=== PATIENT | male | born 1975 | race Caucasian/White ===

== ENCOUNTER 2023-08-01 16:40 | Inpatient (IN) | payer OTHER ==
[2023-08-01 18:42] VITALS: BMI 27.3
[2023-08-01] MEDS ORDERED: IBUPROFEN 400 MG TABLET (FP) PO PRN (21:10)
[2023-08-01] MEDS ORDERED: P-EPHED 60MG/TRIPROLIDI 2.5MG TABLET PO PRN (21:10)
[2023-08-01] MEDS ORDERED: DICYCLOMINE HCL 10 MG CAPSULE PO PRN (21:10)
[2023-08-01] MEDS ORDERED: MAGNESIUM HYDROX 2400MG/30ML ORAL SUSPENSION 30 ML CUP PO PRN (21:10)
[2023-08-01] MEDS ORDERED: LOPERAMIDE HCL 2 MG CAPSULE PO PRN (21:10)
[2023-08-01] MEDS ORDERED: BISMUTH SUBSALICYLATE 524 MG/30 ML PO PRN (21:10)
[2023-08-01] MEDS ORDERED: MAG HYDROX/AL HYDROX/SIMETH 30 ML UNIT-DOSE CUP PO PRN (21:10)
[2023-08-01] MEDS ORDERED: guaiFENesin 600 MG TABLET.ER (FP) PO PRN (21:10)
[2023-08-01] MEDS ORDERED: NALOXONE HCL (KLOXXADO) 8 MG SPRAY NS PRN (21:10)
[2023-08-01] MEDS ORDERED: ONDANSETRON *ODT* 4 MG TABLET SL PRN (21:10)
[2023-08-01] MEDS ORDERED: BENZONATATE 200 MG CAPSULE PO PRN (21:10)
[2023-08-01] MEDS ORDERED: POLYETHYLENE GLYCOL (HEALTHYLAX) 3350 17 GM PACKET PO PRN (21:10)
[2023-08-01] MEDS ORDERED: NALOXONE HCL 0.4 MG/ML VIAL IM PRN (21:10)
[2023-08-01] MEDS ORDERED: NICOTINE POLACRILEX 2 MG GUM BUC PRN (21:10)
[2023-08-01] MEDS ORDERED: BENZOCAINE/MENTHOL (CHLORASEPTIC ) LOZENGE MM PRN (21:10)
[2023-08-01] MEDS ORDERED: methaDONE HCL 10 MG TABLET (FOR DETOX USE ONLY) ONE (22:25)
[2023-08-01] MEDS ORDERED: MELATONIN 5 MG TABLETS ONE (22:26)
[2023-08-01] MEDS: MELATONIN 5 MG TABLETS PO SCH (22:31)
[2023-08-01] MEDS: methaDONE HCL 10 MG TABLET (FOR DETOX USE ONLY) PO ONE (22:31)
[2023-08-01] MEDS: THIAMINE 100 MG TABLET PO SCH (22:58)
[2023-08-01] MEDS: cloNIDine HCL 0.1 MG TABLET PO PRN (23:00)
[2023-08-02] MEDS: BICTEGRAV/EMTRICIT/TENOFOV (BIKTARVY) 50-200-25 MG TABLET PO SCH (07:15)
[2023-08-02] MEDS: INSULIN ASPART SLIDING SCALE (NOVOLOG) 1 VIAL SQ SCH (07:16)
[2023-08-02] MEDS: METHOCARBAMOL 500 MG TABLET PO PRN (09:52)
[2023-08-02] MEDS: PRENATAL VITAMINS W/ FOLIC ACID TABLET (FP) PO SCH (09:52)
[2023-08-02 11:47] LABS: HEMATOCRIT 40.2 % (35.4-49); HEMOGLOBIN 12.9 GM/dL (11.7-16.9); MCH 27.1 pg (25.7-33.7); MEAN CELL VOLUME 84.8 fl (80-96); MEAN PLT VOLUME 9.6 fl (7.5-11.1); PLATELET COUNT 207 10^3/uL (134-434); RBC 4.75 M/mm3 (4.00-5.60); RDW 14.2 % (11.9-15.9); WHITE BLOOD COUNT 7.8 K/mm3 (4.0-10.0)
[2023-08-02 11:51] LABS: POTASSIUM 4.3 mmol/L (3.5-5.1)
[2023-08-02 12:02] LABS: ALBUMIN 2.8 g/dl (3.4-5.0)
[2023-08-02 12:03] LABS: BILIRUBIN,TOTAL 0.3 mg/dL (0.2-1); CALCIUM 9.3 mg/dL (8.5-10.1); TOT PROT 7.2 g/dl (6.4-8.2)
[2023-08-02 12:04] LABS: BLOOD UREA NITROGEN 9.2 mg/dL (7-18); CREATININE 0.9 mg/dL (0.55-1.3)
[2023-08-02] MEDS: risperiDONE 1 MG TABLET PO SCH (22:49)
[2023-08-03] MEDS: methaDONE HCL 10 MG TABLET (FOR DETOX USE ONLY) PO ONE (09:47)
[2023-08-03] MEDS: SERTRALINE HCL 50 MG TABLET (FP) PO SCH (09:47)
[2023-08-03] MEDS: hydrOXYzine PAMOATE 25 MG CAPSULE (FP) PO PRN (09:47)
[2023-08-04] MEDS: IBUPROFEN 600 MG TABLET (FP) PO PRN (19:06)
[2023-08-04] MEDS: cloNIDine HCL 0.1 MG TABLET PO PRN (22:42)
[2023-08-05] MEDS: methaDONE HCL 10 MG TABLET (FOR DETOX USE ONLY) PO ONE (09:47)
[2023-08-05] MEDS: ACETAMINOPHEN 325 MG TABLET (FP) PO PRN (22:19)
[2023-08-06 09:52] VITALS: BP 158/82; PULSE 73; RESP 17; TEMP 98.2
== END 2023-08-06 10:41 | disposition home or self-care (01) | DRG 773 ==
LOC: YASAS 16:40 → Y3N 22:20
PROVIDERS: ADMIT Allergy & Immunology; ATTEND Surgery
PROC: HZ2ZZZZ Detoxification Services for Substance Abuse Treatment (ICD-10-PCS; principal; 2023-08-01)
DX: F11.23 Opioid dependence with withdrawal (principal); F14.20 Cocaine dependence, uncomplicated; F17.210 Nicotine dependence, cigarettes, uncomplicated; F19.24 Other psychoactive substance dependence with psychoactive substance-induced mood disorder; Z21 Asymptomatic human immunodeficiency virus [HIV] infection status; I10 Essential (primary) hypertension; E11.9 Type 2 diabetes mellitus without complications; Z79.4 Long term (current) use of insulin; Z86.59 Personal history of other mental and behavioral disorders; Z87.828 Personal history of other (healed) physical injury and trauma; Z28.310 Unvaccinated for COVID-19; Z28.9 Immunization not carried out for unspecified reason
CPT/HCPCS: 36415; 80053; 82962; 85027; 86780

== ENCOUNTER 2023-12-11 09:52 | Inpatient (IN) | payer OTHER ==
[2023-12-11 10:35] VITALS: BMI 27.6
[2023-12-11] MEDS ORDERED: POLYETHYLENE GLYCOL (HEALTHYLAX) 3350 17 GM PACKET PO PRN (10:50)
[2023-12-11] MEDS ORDERED: IBUPROFEN 400 MG TABLET (FP) PO PRN (10:50)
[2023-12-11] MEDS ORDERED: NALOXONE (NARCAN) HCL 4 MG/0.1 ML SPRAY NS PRN (10:50)
[2023-12-11] MEDS ORDERED: NALOXONE HCL 0.4 MG/ML VIAL IM PRN (10:50)
[2023-12-11] MEDS ORDERED: P-EPHED 60MG/TRIPROLIDI 2.5MG TABLET PO PRN (10:50)
[2023-12-11] MEDS ORDERED: MAG HYDROX/AL HYDROX/SIMETH 30 ML UNIT-DOSE CUP PO PRN (10:50)
[2023-12-11] MEDS ORDERED: LOPERAMIDE HCL 2 MG CAPSULE PO PRN (10:50)
[2023-12-11] MEDS ORDERED: BENZONATATE 200 MG CAPSULE PO PRN (10:50)
[2023-12-11] MEDS ORDERED: ACETAMINOPHEN 325 MG TABLET (FP) PO PRN (10:50)
[2023-12-11] MEDS ORDERED: MAGNESIUM HYDROX 2400MG/30ML ORAL SUSPENSION 30 ML CUP PO PRN (10:50)
[2023-12-11] MEDS ORDERED: NICOTINE POLACRILEX 2 MG GUM BUC PRN (10:50)
[2023-12-11] MEDS ORDERED: guaiFENesin 600 MG TABLET.ER (FP) PO PRN (10:50)
[2023-12-11] MEDS ORDERED: BENZOCAINE/MENTHOL (CHLORASEPTIC ) LOZENGE MM PRN (10:50)
[2023-12-11] MEDS ORDERED: NICOTINE POLACRILEX 2 MG LOZENGE BC PRN (10:50)
[2023-12-11] MEDS: ATORVASTATIN CA 40 MG TABLET (FP) PO SCH (22:38)
[2023-12-11] MEDS: THIAMINE 100 MG TABLET PO SCH (22:38)
[2023-12-11] MEDS: MELATONIN 5 MG TABLETS PO SCH (22:38)
[2023-12-12] MEDS: PRENATAL VITAMINS W/ FOLIC ACID TABLET (FP) PO SCH (09:53)
[2023-12-12] MEDS: IBUPROFEN 600 MG TABLET (FP) PO PRN (09:53)
[2023-12-12] MEDS: cloNIDine HCL 0.1 MG TABLET PO SCH (09:53)
[2023-12-12] MEDS: methaDONE HCL 10 MG TABLET PO ONE (09:54)
[2023-12-12] MEDS ORDERED: methaDONE HCL 10 MG TABLET PO PRN (11:06)
[2023-12-12] MEDS: risperiDONE 1 MG TABLET PO SCH (22:39)
[2023-12-12] MEDS: METHOCARBAMOL 500 MG TABLET PO ONE (22:50)
[2023-12-13] MEDS: methaDONE 40 MG, methaDONE 10 MG PO ONE (09:40)
[2023-12-13] MEDS: SERTRALINE HCL 50 MG TABLET (FP) PO SCH (09:40)
[2023-12-14] MEDS ORDERED: cloNIDine HCL 0.1 MG TABLET PO PRN
[2023-12-14] MEDS: methaDONE 40 MG, methaDONE 20 MG PO ONE (10:15)
[2023-12-15] MEDS: methaDONE 40 MG, methaDONE 30 MG PO ONE (10:14)
[2023-12-16] MEDS: BICTEGRAV/EMTRICIT/TENOFOV (BIKTARVY) 50-200-25 MG TABLET PO SCH (10:18)
[2023-12-16] MEDS: methaDONE HCL 40 MG DISPERSABLE TABLET PO ONE (10:18)
[2023-12-16 12:31] LABS: BASO % 0.4 % (0-2.0); EOS % 1.6 % (0-4.5); HEMATOCRIT 40.8 % (35.4-49); HEMOGLOBIN 13.4 GM/dL (11.7-16.9); LYMPH % 26.1 % (8-40); MCH 27.1 pg (25.7-33.7); MCHC 32.9 g/dl (32.0-35.9); MEAN CELL VOLUME 82.3 fl (80-96); MEAN PLT VOLUME 9.4 fl (7.5-11.1); MONO % 7.5 % (3.8-10.2); NEUT % 64.4 % (42.8-82.8); PLATELET COUNT 192 10^3/uL (134-434); RBC 4.95 M/mm3 (4.00-5.60); RDW 13.7 % (11.9-15.9); WHITE BLOOD COUNT 7.2 K/mm3 (4.0-10.0)
[2023-12-16 12:39] LABS: POTASSIUM 4.5 mmol/L (3.5-5.1)
[2023-12-16 12:46] LABS: CALCIUM 9.4 mg/dL (8.5-10.1)
[2023-12-16 12:47] LABS: BLOOD UREA NITROGEN 12.2 mg/dL (7-18)
[2023-12-17] MEDS: methaDONE HCL 40 MG DISPERSABLE TABLET PO SCH (06:16)
[2023-12-17] MEDS ORDERED: methaDONE 80 MG, methaDONE 10 MG PO ONE (10:00)
[2023-12-17 14:42] LABS: PH,URINE 7.5 (5.0-8.0); URINE APPEARANCE CLEAR; URINE BILIRUBIN NEGATIVE (NEGATIVE); URINE COLOR YELLOW; URINE GLUCOSE (UA) NEGATIVE (NEGATIVE); URINE KETONE NEGATIVE (NEGATIVE); URINE LEUK ESTERASE NEGATIVE (NEGATIVE); URINE NITRITE NEGATIVE (NEGATIVE); URINE PROTEIN NEGATIVE (NEGATIVE); URINE UROBILINOGEN 0.2 mg/dL (0.2-1.0)
[2023-12-18 09:20] VITALS: TEMP 97.8
[2023-12-18 13:24] VITALS: BP 123/69; PULSE 67; RESP 16
== END 2023-12-18 13:53 | disposition other institution (70) | DRG 773 ==
LOC: YASAS 09:52 → Y3N 11:58
PROVIDERS: ADMIT Allergy & Immunology; ATTEND Surgery
PROC: HZ2ZZZZ Detoxification Services for Substance Abuse Treatment (ICD-10-PCS; principal; 2023-12-11)
DX: F11.23 Opioid dependence with withdrawal (principal); F14.20 Cocaine dependence, uncomplicated; F17.210 Nicotine dependence, cigarettes, uncomplicated; F19.24 Other psychoactive substance dependence with psychoactive substance-induced mood disorder; F25.9 Schizoaffective disorder, unspecified; Z21 Asymptomatic human immunodeficiency virus [HIV] infection status; I10 Essential (primary) hypertension; E78.5 Hyperlipidemia, unspecified; E11.9 Type 2 diabetes mellitus without complications; Z79.899 Other long term (current) drug therapy; Z87.828 Personal history of other (healed) physical injury and trauma
CPT/HCPCS: 36415; 80048; 80305; 81003; 82962; 85025; 86780; 87811

== ENCOUNTER 2023-12-18 13:59 | Inpatient (IN) | payer OTHER ==
[2023-12-18] MEDS ORDERED: NICOTINE POLACRILEX 4 MG GUM BUC PRN (14:34)
[2023-12-18] MEDS ORDERED: BENZONATATE 200 MG CAPSULE PO PRN (14:34)
[2023-12-18] MEDS ORDERED: NICOTINE POLACRILEX 4 MG LOZENGE BC PRN (14:34)
[2023-12-18] MEDS ORDERED: MAGNESIUM HYDROX 2400MG/30ML ORAL SUSPENSION 30 ML CUP PO PRN (14:34)
[2023-12-18] MEDS ORDERED: NALOXONE (NARCAN) HCL 4 MG/0.1 ML SPRAY NS PRN (14:34)
[2023-12-18] MEDS ORDERED: ACETAMINOPHEN 325 MG TABLET (FP) PO PRN (14:34)
[2023-12-18] MEDS ORDERED: guaiFENesin 600 MG TABLET.ER (FP) PO PRN (14:34)
[2023-12-18] MEDS ORDERED: MAG HYDROX/AL HYDROX/SIMETH 30 ML UNIT-DOSE CUP PO PRN (14:34)
[2023-12-18] MEDS ORDERED: NALOXONE HCL 0.4 MG/ML VIAL IVPUSH PRN (14:34)
[2023-12-18] MEDS ORDERED: LOPERAMIDE HCL 2 MG CAPSULE PO PRN (14:34)
[2023-12-18] MEDS ORDERED: METHOCARBAMOL 500 MG TABLET PO PRN (14:34)
[2023-12-18] MEDS ORDERED: POLYETHYLENE GLYCOL (HEALTHYLAX) 3350 17 GM PACKET PO PRN (14:34)
[2023-12-18] MEDS: ATORVASTATIN CA 40 MG TABLET (FP) PO SCH (21:17)
[2023-12-18] MEDS: MELATONIN 5 MG TABLETS PO SCH (21:17)
[2023-12-18] MEDS: risperiDONE 1 MG TABLET PO SCH (21:17)
[2023-12-18] MEDS: THIAMINE 100 MG TABLET PO SCH (21:17)
[2023-12-19] MEDS: methaDONE HCL 40 MG DISPERSABLE TABLET PO SCH (06:32)
[2023-12-19] MEDS: BICTEGRAV/EMTRICIT/TENOFOV (BIKTARVY) 50-200-25 MG TABLET PO SCH (07:17)
[2023-12-19] MEDS: PRENATAL VITAMINS W/ FOLIC ACID TABLET (FP) PO SCH (09:53)
[2023-12-19] MEDS: SERTRALINE HCL 50 MG TABLET (FP) PO SCH (09:53)
[2023-12-19] MEDS: NICOTINE 21 MG/24 HOURS TOPICAL PATCH TD SCH (09:53)
[2023-12-19] MEDS: amLODIPine BESYLATE 2.5 MG TABLET (FP) PO SCH (13:39)
[2023-12-19] MEDS: BACLOFEN 10 MG TABLET (FP) PO SCH (21:06)
[2023-12-23] MEDS: BENZOCAINE/MENTHOL (CHLORASEPTIC ) LOZENGE MM PRN (06:09)
[2023-12-24] MEDS: amLODIPine BESYLATE 5 MG TABLET (FP) PO SCH (14:30)
[2023-12-25] MEDS ORDERED: methaDONE HCL 40 MG DISPERSABLE TABLET PO SCH (06:00)
[2023-12-25] MEDS: methaDONE 40 MG, methaDONE 30 MG PO SCH (06:47)
[2023-12-26] MEDS: HEPATITIS A VIRUS VACCINE/PF 1440 UNIT/1 ML IM ONE (15:43)
[2023-12-29] MEDS ORDERED: methaDONE HCL 10 MG TABLET PO SCH (06:00)
[2023-12-29] MEDS: methaDONE 40 MG, methaDONE 20 MG PO SCH (06:36)
[2024-01-01] MEDS ORDERED: methaDONE HCL 10 MG TABLET PO SCH (06:00)
[2024-01-01] MEDS: methaDONE 40 MG, methaDONE 10 MG PO SCH (06:22)
[2024-01-04] MEDS: methaDONE HCL 40 MG DISPERSABLE TABLET PO SCH (06:04)
[2024-01-05] MEDS ORDERED: ATORVASTATIN CA 20 MG TABLET (FP) ONE (20:21)
[2024-01-07] MEDS: methaDONE HCL 10 MG TABLET PO ONE (06:17)
[2024-01-07] MEDS ORDERED: methaDONE HCL 10 MG TABLET (FOR DETOX USE ONLY) PO ONE (11:00)
[2024-01-07] MEDS: BUPRENORPHINE/NALOXONE 0.5 MG/0.125 MG FILM SL ONE ×2 (11:11→22:34)
[2024-01-07] MEDS: cloNIDine HCL 0.1 MG TABLET PO SCH (13:54)
[2024-01-07] MEDS ORDERED: BISMUTH SUBSALICYLATE 262 MG/15 ML BTL PO PRN (14:20)
[2024-01-07] MEDS ORDERED: ONDANSETRON *ODT* 4 MG TABLET SL PRN (14:20)
[2024-01-07] MEDS ORDERED: DICYCLOMINE HCL 10 MG CAPSULE PO PRN (14:20)
[2024-01-07] MEDS ORDERED: BENZONATATE 200 MG CAPSULE PO PRN (14:20)
[2024-01-07] MEDS ORDERED: guaiFENesin 600 MG TABLET.ER (FP) PO PRN (14:20)
[2024-01-08] MEDS: BUPRENORPHINE/NALOXONE 0.5 MG/0.125 MG FILM SL SCH (10:08)
[2024-01-09] MEDS: cloNIDine HCL 0.1 MG TABLET PO PRN (05:48)
[2024-01-09] MEDS: BUPRENORPHINE/NALOXONE 2 MG/0.5 MG FILM PACKET SL SCH (09:50)
[2024-01-09] MEDS: methaDONE HCL 10 MG TABLET (FOR DETOX USE ONLY) PO ONE (10:02)
[2024-01-10] MEDS: BUPRENORPHINE/NALOXONE 4 MG/1 MG FILM PACKET SL SCH (10:49)
[2024-01-10] MEDS ORDERED: methaDONE HCL 10 MG TABLET (FOR DETOX USE ONLY) PO ONE (12:00)
[2024-01-10] MEDS: methaDONE HCL 10 MG TABLET PO ONE (12:15)
[2024-01-10] MEDS ORDERED: NALOXONE (NYS OPIOID OVERDOSE PROGRAM) 4 MG/0.1 ML SPRAY NS PRN (14:51)
[2024-01-10] MEDS: NALOXONE (NYS OPIOID OVERDOSE PROGRAM) 4 MG/0.1 ML SPRAY NS ONE (16:04)
[2024-01-10] MEDS: IBUPROFEN 600 MG TABLET (FP) PO PRN (21:48)
[2024-01-11] MEDS: BUPRENORPHINE/NALOXONE 8 MG/2 MG FILM PACKET SL SCH (09:33)
[2024-01-11] MEDS: methaDONE HCL 10 MG TABLET PO ONE (09:34)
[2024-01-11] MEDS ORDERED: methaDONE HCL 10 MG TABLET (FOR DETOX USE ONLY) PO ONE (10:00)
[2024-01-12] MEDS ORDERED: BUPRENORPHINE/NALOXONE 8 MG/2 MG FILM PACKET SL ONE (06:00)
[2024-01-12] MEDS: hydrOXYzine PAMOATE 25 MG CAPSULE (FP) PO PRN (06:34)
[2024-01-12] MEDS: IBUPROFEN 400 MG TABLET (FP) PO PRN (21:40)
[2024-01-13 06:37] VITALS: TEMP 97.7
[2024-01-13 07:13] VITALS: PULSE 87; RESP 18
[2024-01-13 09:46] VITALS: BP 146/82
== END 2024-01-13 10:01 | disposition home or self-care (01) | DRG 772 ==
LOC: YASAS 13:59 → Y3W 14:00
PROVIDERS: ADMIT Psychiatry & Neurology Pain Medicine; ATTEND Psychiatry & Neurology Pain Medicine
PROC: HZ42ZZZ Group Counseling for Substance Abuse Treatment, Cognitive-Behavioral (ICD-10-PCS; principal; 2023-12-18)
DX: F11.20 Opioid dependence, uncomplicated (principal); F14.20 Cocaine dependence, uncomplicated; F17.210 Nicotine dependence, cigarettes, uncomplicated; F31.9 Bipolar disorder, unspecified; F20.9 Schizophrenia, unspecified; F19.24 Other psychoactive substance dependence with psychoactive substance-induced mood disorder; Z21 Asymptomatic human immunodeficiency virus [HIV] infection status; I10 Essential (primary) hypertension; E11.9 Type 2 diabetes mellitus without complications; Z79.899 Other long term (current) drug therapy
CPT/HCPCS: 82962; 90632; J0475